=== PATIENT | male | born 2000 | race Two or more races ===

== ENCOUNTER 2024-04-23 03:53 | Emergency (ER) | payer OTHER ==
[~2024-04-23] VITALS: Ht 162.6 cm; Wt 75.0 kg
[2024-04-23 03:55] VITALS: BP 183/86; PULSE 106; RESP 18; TEMP 98; O2SAT 100
== END 2024-04-23 04:21 ==
LOC: ER 03:54
DX: Z04.1 Encounter for examination and observation following transport accident (principal); V89.2XXA Person injured in unspecified motor-vehicle accident, traffic, initial encounter; Y93.89 Activity, other specified; Y92.89 Other specified places as the place of occurrence of the external cause; Y99.8 Other external cause status
CPT/HCPCS: 99283